=== PATIENT | male | born 1960 | race Caucasian/White ===

== ENCOUNTER → 2022-06-23 | Outpatient (CLI) | payer OTHER ==
[2022-06-23 12:27] LABS: HEMATOCRIT 46.2 % (42.0-52.0); HEMOGLOBIN 16.1 g/dL (13.5-18.0)
== END ==
LOC: LAB 12:07
DX: Z79.899 Other long term (current) drug therapy (principal)

== ENCOUNTER → 2022-07-07 | Outpatient (CLI) | payer OTHER ==
[2022-07-07 11:55] LABS: HEMATOCRIT 44.6 % (42.0-52.0); HEMOGLOBIN 15.4 g/dL (13.5-18.0)
== END ==
LOC: LAB 11:45
DX: Z01.89 Encounter for other specified special examinations (principal)